=== PATIENT | male | born 1940 | race Caucasian/White ===

== ENCOUNTER 2017-01-05 10:00 | Inpatient (IN) | payer OTHER ==
[~2017-01-05] VITALS: Ht 182.9 cm; Wt 115.7 kg
[2017-01-05 10:00] VITALS: BP_SYST 136
[2017-01-05] MEDS ORDERED: PIPERACILLIN/TAZO 3.38 GM in NS 50 ML IV ONE (10:45)
[2017-01-05] MEDS ORDERED: MORPHINE 4 MG/ML INJ. SYRINGE IVP ONE (10:45)
[2017-01-05] MEDS ORDERED: DIPHENHYDRAMINE INJ 50 MG/ML VIAL IVP ONE (10:45)
[2017-01-05] MEDS ORDERED: PIPERACILLIN/TAZOBACTAM 3.375 GM/VIAL (ZOSYN) IV ONE (11:03)
[2017-01-05 11:10] LABS: BASOPHILS % (AUTO) 0.5 % (0.0-2.0); EOSINOPHILS # (AUTO) 0.2 K/uL (0.0-0.4); EOSINOPHILS % (AUTO) 3.5 % (0.0-4.0); HEMATOCRIT 44.6 % (36-54); HEMOGLOBIN 14.6 g/dL (14.0-18.0); LYMPHOCYTES # (AUTO) 1.8 K/uL (1.0-5.5); LYMPHOCYTES % (AUTO) 31.3 % (20.5-51.5); MEAN CORPUSCULAR HEMOGLOBIN 29 pg (27-31); MEAN CORPUSCULAR HGB CONC 33 % (32-36); MEAN CORPUSCULAR VOLUME 88 fL (79.0-98.0); MONOCYTES # (AUTO) 0.4 K/uL (0.0-1.0); MONOCYTES % (AUTO) 7.6 % (1.7-9.3); NEUTROPHILS # (AUTO) 3.5 K/uL (1.8-7.7); NEUTROPHILS % (AUTO) 57.1 % (40.0-70.0); PLATELET COUNT (AUTO) 247 K/uL (130-430); RED BLOOD CELL COUNT(AUTO) 5.06 MIL/uL (4.2-6.2); RED CELL DISTRIBUTION WIDTH 13.3 % (9.0-15.0); WHITE BLOOD COUNT (AUTO) 5.9 K/uL (4.8-10.8)
[2017-01-05 11:23] LABS: ANION GAP 6 (5-15); CALCIUM 9.1 mg/dL (8.4-11.0); CHLORIDE 103 mmol/L (98-107); CREATININE 1.14 mg/dL (0.55-1.30); GLUCOSE 126 mg/dL (70-99); POTASSIUM 3.7 mmol/L (3.5-5.1); SODIUM SERUM 134 mmol/L (136-145); UREA NITROGEN, BLOOD 18 mg/dL (8-21)
[2017-01-05 11:51] LABS: PROTHROMBIN TIME 34.1 SECS (9.5-12.5)
[2017-01-05 11:52] LABS: ALANINE AMINOTRANSFERASE 23 U/L (12-78); ALBUMIN 3.5 g/dL (3.4-4.8); ASPARTATE AMINOTRANSFERASE 30 U/L (10-37); LIPASE 144 U/L (73-393); TOTAL BILIRUBIN 1.1 mg/dL (0.0-1.0); TOTAL PROTEIN, SERUM 7.8 g/dL (6.4-8.3)
[2017-01-05 12:28] LABS: BILIRUBIN,URINE NEGATIVE (NEGATIVE); BLOOD, URINE NEGATIVE (NEGATIVE); CLARITY/URINE CLEAR (CLEAR); COLOR,URINE YELLOW (YELLOW); GLUCOSE,URINE NEGATIVE (NEGATIVE); KETONES,URINE NEGATIVE (NEGATIVE); LEUKOCYTE ESTERASE ,URINE NEGATIVE (NEGATIVE); NITRITE, URINE NEGATIVE (NEGATIVE); PH,URINE 5.5 (5.0-8.0); PROTEIN URINE NEGATIVE (NEGATIVE)
[2017-01-05] MEDS ORDERED: NIAC1000 PO (13:01)
[2017-01-05] MEDS ORDERED: WARF4TAB68 PO ×2 (13:01→16:59)
[2017-01-05] MEDS ORDERED: SERT25TA PO (13:01)
[2017-01-05] MEDS ORDERED: EZET10TA PO ×2 (13:01→16:59)
[2017-01-05] MEDS ORDERED: PHYTONADIONE 10 MG/ML AMP SUBCUT ONE ×2 (13:30→19:00)
[2017-01-05 14:05] VITALS: BP_SYST 129
[2017-01-05 16:30] VITALS: BP_SYST 110
[2017-01-05] MEDS ORDERED: PANTOPRAZOLE SODIUM 40 MG/VIAL (PROTONIX) IVP ONE (16:30)
[2017-01-05] MEDS: D5/0.45 NS 1,000 ML IV SCH (16:47)
[2017-01-05] MEDS ORDERED: LOP600 PO (16:59)
[2017-01-05] MEDS ORDERED: NIAC1CAP PO (16:59)
[2017-01-05] MEDS ORDERED: SERT50TA PO (16:59)
[2017-01-05] MEDS ORDERED: PHYTONADIONE 5 MG TABLET PO ONE (17:15)
[2017-01-05] MEDS: PIPERACILLIN/TAZO 3.375/DEX-IS 50 ML IV SCH ×2 (18:18→23:59)
[2017-01-05 20:00] VITALS: BP_SYST 117
[2017-01-05] MEDS: metroNIDAZOLE 500 mg/NS 100 ML IV SCH (21:53)
[2017-01-06] VITALS (9 sets, daily range): BP systolic 113–143
[2017-01-06] MEDS ORDERED: PHYTONADIONE 5 MG TABLET PO ONE
[2017-01-06] MEDS ORDERED: PHYTONADIONE 10 MG/ML AMP SUBCUT ONE
[2017-01-06] MEDS: metroNIDAZOLE 500 mg/NS 100 ML IV SCH ×3 (05:08→23:31)
[2017-01-06] MEDS: D5/0.45 NS 1,000 ML IV SCH ×2 (05:19→23:30)
[2017-01-06] MEDS: PIPERACILLIN/TAZO 3.375/DEX-IS 50 ML IV SCH ×2 (05:47→10:41)
[2017-01-06 07:12] LABS: BASOPHILS % (AUTO) 0.6 % (0.0-2.0); EOSINOPHILS # (AUTO) 0.3 K/uL (0.0-0.4); EOSINOPHILS % (AUTO) 5.4 % (0.0-4.0); HEMATOCRIT 41.4 % (36-54); HEMOGLOBIN 13.6 g/dL (14.0-18.0); LYMPHOCYTES # (AUTO) 1.7 K/uL (1.0-5.5); LYMPHOCYTES % (AUTO) 28.4 % (20.5-51.5); MEAN CORPUSCULAR HEMOGLOBIN 29 pg (27-31); MEAN CORPUSCULAR HGB CONC 33 % (32-36); MEAN CORPUSCULAR VOLUME 88 fL (79.0-98.0); MONOCYTES # (AUTO) 0.4 K/uL (0.0-1.0); MONOCYTES % (AUTO) 7.4 % (1.7-9.3); NEUTROPHILS # (AUTO) 3.6 K/uL (1.8-7.7); NEUTROPHILS % (AUTO) 58.2 % (40.0-70.0); PLATELET COUNT (AUTO) 203 K/uL (130-430); RED BLOOD CELL COUNT(AUTO) 4.69 MIL/uL (4.2-6.2); RED CELL DISTRIBUTION WIDTH 13.4 % (9.0-15.0)
[2017-01-06 07:28] LABS: ALANINE AMINOTRANSFERASE 23 U/L (12-78); ALBUMIN 3.2 g/dL (3.4-4.8); ANION GAP 9 (5-15); ASPARTATE AMINOTRANSFERASE 30 U/L (10-37); CALCIUM 8.6 mg/dL (8.4-11.0); CHLORIDE 109 mmol/L (98-107); CREATININE 0.98 mg/dL (0.55-1.30); GLUCOSE 98 mg/dL (70-99); POTASSIUM 3.1 mmol/L (3.5-5.1); SODIUM SERUM 142 mmol/L (136-145); TOTAL BILIRUBIN 1.3 mg/dL (0.0-1.0); TOTAL PROTEIN, SERUM 7.2 g/dL (6.4-8.3); UREA NITROGEN, BLOOD 12 mg/dL (8-21)
[2017-01-06 07:37] LABS: INR 2.3 (0.80-1.20); PROTHROMBIN TIME 25.9 SECS (9.5-12.5)
[2017-01-06] MEDS: PANTOPRAZOLE SODIUM 40 MG/VIAL (PROTONIX) IVP SCH (09:26)
[2017-01-06] MEDS ORDERED: POTASSIUM CHLORIDE 40 MEQ in NS 250 ML IV ONE (13:00)
[2017-01-06 16:04] LABS: INR 1.5 (0.80-1.20); PROTHROMBIN TIME 16.4 SECS (9.5-12.5)
[2017-01-06] MEDS ORDERED: SEVOFLURANE 15 MIN GAS INH ONE (18:48)
[2017-01-06] MEDS ORDERED: KETOROLAC TROMETHAMINE 30 MG VIAL IVP ONE (18:48)
[2017-01-06] MEDS ORDERED: GLYCOPYRROLATE 0.2 MG/ML VIAL IJ ONE (18:48)
[2017-01-06] MEDS ORDERED: LR 1,000 ML IV.SOLN IV ONE (18:48)
[2017-01-06] MEDS ORDERED: MIDAZOLAM HCL 5 MG/5 ML VIAL IVP ONE (18:48)
[2017-01-06] MEDS ORDERED: fentaNYL CITRATE 250 MCG/5 ML AMP IV ONE (18:48)
[2017-01-06] MEDS ORDERED: PROPOFOL 200MG/ 20ML VIAL (DIPRIVAN) IV ONE (18:48)
[2017-01-06] MEDS ORDERED: NEOSTIGMINE METHYLSULFATE 1 MG/ML, 10 ML VIAL IVP ONE (18:48)
[2017-01-06] MEDS ORDERED: ONDANSETRON HCL 4 MG/2 ML VIAL IVP ONE (18:48)
[2017-01-06] MEDS ORDERED: LR 1,000 ML IV SCH (19:21)
[2017-01-06] MEDS ORDERED: ONDANSETRON HCL 4 MG/2 ML VIAL IVP PRN (19:30)
[2017-01-06] MEDS ORDERED: HYDROmorphone 2 MG/ML VIAL IVP PRN ×2 (19:30)
[2017-01-06] MEDS ORDERED: HYDROmorphone 1 MG INJ. 1 MG/ML AMPUL IVP PRN (19:30)
[2017-01-06] MEDS ORDERED: HYDROmorphone 1 MG INJ. 1 MG/ML AMPUL ONE ×2 (21:33→21:47)
[2017-01-07 00:25] VITALS: BP_SYST 117
[2017-01-07] MEDS: PIPERACILLIN/TAZO 3.375/DEX-IS 50 ML IV SCH ×4 (00:49→18:12)
[2017-01-07 04:29] VITALS: BP_SYST 119
[2017-01-07] MEDS: D5/0.45 NS 1,000 ML IV SCH ×3 (04:58→23:34)
[2017-01-07] MEDS: metroNIDAZOLE 500 mg/NS 100 ML IV SCH ×3 (05:45→23:33)
[2017-01-07] MEDS ORDERED: *LOVENOX 1MG/KG Q12H/PHARMACY XX ONE (06:45)
[2017-01-07 07:17] LABS: EOSINOPHILS % (AUTO) 0.1 % (0.0-4.0); HEMATOCRIT 42.4 % (36-54); HEMOGLOBIN 13.9 g/dL (14.0-18.0); LYMPHOCYTES # (AUTO) 0.9 K/uL (1.0-5.5); LYMPHOCYTES % (AUTO) 8.3 % (20.5-51.5); MEAN CORPUSCULAR HEMOGLOBIN 29 pg (27-31); MEAN CORPUSCULAR HGB CONC 33 % (32-36); MEAN CORPUSCULAR VOLUME 88 fL (79.0-98.0); MONOCYTES # (AUTO) 0.2 K/uL (0.0-1.0); MONOCYTES % (AUTO) 2.3 % (1.7-9.3); NEUTROPHILS # (AUTO) 9.7 K/uL (1.8-7.7); NEUTROPHILS % (AUTO) 89.3 % (40.0-70.0); PLATELET COUNT (AUTO) 246 K/uL (130-430); RED CELL DISTRIBUTION WIDTH 13.8 % (9.0-15.0); WHITE BLOOD COUNT (AUTO) 10.8 K/uL (4.8-10.8)
[2017-01-07 07:32] LABS: ALANINE AMINOTRANSFERASE 27 U/L (12-78); ALBUMIN 3.2 g/dL (3.4-4.8); ANION GAP 12 (5-15); ASPARTATE AMINOTRANSFERASE 34 U/L (10-37); CALCIUM 8.6 mg/dL (8.4-11.0); CHLORIDE 109 mmol/L (98-107); GLUCOSE 141 mg/dL (70-99); POTASSIUM 3.8 mmol/L (3.5-5.1); SODIUM SERUM 144 mmol/L (136-145); TOTAL BILIRUBIN 1.1 mg/dL (0.0-1.0); TOTAL PROTEIN, SERUM 7.4 g/dL (6.4-8.3); UREA NITROGEN, BLOOD 10 mg/dL (8-21)
[2017-01-07] MEDS: PANTOPRAZOLE SODIUM 40 MG/VIAL (PROTONIX) IVP SCH (09:21)
[2017-01-07] MEDS: ENOXAPARIN SODIUM 120 MG/0.8 ML SYRINGE SUBCUT SCH ×2 (09:21→20:37)
[2017-01-07 12:43] VITALS: BP_SYST 111
[2017-01-07] MEDS: MORPHINE 2 MG/ML INJ. SYRINGE IVP PRN ×2 (13:28→19:50)
[2017-01-07 16:10] VITALS: BP_SYST 104
[2017-01-07 20:10] VITALS: BP_SYST 107
[2017-01-07] MEDS ORDERED: HYDROmorphone 2 MG/ML VIAL IVP PRN (23:15)
[2017-01-08 00:15] VITALS: BP_SYST 129
[2017-01-08] MEDS: PIPERACILLIN/TAZO 3.375/DEX-IS 50 ML IV SCH ×5 (00:56→23:30)
[2017-01-08 03:28] VITALS: BP_SYST 105
[2017-01-08] MEDS: metroNIDAZOLE 500 mg/NS 100 ML IV SCH ×3 (06:39→21:01)
[2017-01-08 07:24] LABS: BASOPHILS % (AUTO) 0.5 % (0.0-2.0); EOSINOPHILS # (AUTO) 0.3 K/uL (0.0-0.4); EOSINOPHILS % (AUTO) 3.6 % (0.0-4.0); HEMATOCRIT 35.5 % (36-54); HEMOGLOBIN 11.9 g/dL (14.0-18.0); LYMPHOCYTES # (AUTO) 1.5 K/uL (1.0-5.5); MEAN CORPUSCULAR HEMOGLOBIN 30 pg (27-31); MEAN CORPUSCULAR HGB CONC 34 % (32-36); MEAN CORPUSCULAR VOLUME 90 fL (79.0-98.0); MONOCYTES # (AUTO) 0.5 K/uL (0.0-1.0); NEUTROPHILS # (AUTO) 5.9 K/uL (1.8-7.7); NEUTROPHILS % (AUTO) 71.9 % (40.0-70.0); PLATELET COUNT (AUTO) 203 K/uL (130-430); RED BLOOD CELL COUNT(AUTO) 3.95 MIL/uL (4.2-6.2); RED CELL DISTRIBUTION WIDTH 13.6 % (9.0-15.0); WHITE BLOOD COUNT (AUTO) 8.2 K/uL (4.8-10.8)
[2017-01-08 07:36] LABS: ALANINE AMINOTRANSFERASE 24 U/L (12-78); ALBUMIN 2.9 g/dL (3.4-4.8); ANION GAP 8 (5-15); ASPARTATE AMINOTRANSFERASE 30 U/L (10-37); CALCIUM 8.1 mg/dL (8.4-11.0); CHLORIDE 107 mmol/L (98-107); CREATININE 1.06 mg/dL (0.55-1.30); GLUCOSE 104 mg/dL (70-99); SODIUM SERUM 142 mmol/L (136-145); TOTAL BILIRUBIN 1.1 mg/dL (0.0-1.0); TOTAL PROTEIN, SERUM 6.7 g/dL (6.4-8.3); UREA NITROGEN, BLOOD 7 mg/dL (8-21)
[2017-01-08 08:00] VITALS: BP_SYST 93
[2017-01-08] MEDS: ENOXAPARIN SODIUM 120 MG/0.8 ML SYRINGE SUBCUT SCH (09:00)
[2017-01-08] MEDS: PANTOPRAZOLE SODIUM 40 MG/VIAL (PROTONIX) IVP SCH ×2 (09:01→21:01)
[2017-01-08 12:00] VITALS: BP_SYST 112
[2017-01-08 15:10] LABS: HEMATOCRIT 35.8 % (36-54); HEMOGLOBIN 11.9 g/dL (14.0-18.0)
[2017-01-08 16:42] VITALS: BP_SYST 95
[2017-01-08 19:40] VITALS: BP_SYST 139
[2017-01-08 20:24] LABS: HEMATOCRIT 35.3 % (36-54); HEMOGLOBIN 11.9 g/dL (14.0-18.0)
[2017-01-09 00:48] VITALS: BP_SYST 121
[2017-01-09 03:23] LABS: HEMATOCRIT 33.8 % (36-54); HEMOGLOBIN 11.5 g/dL (14.0-18.0)
[2017-01-09 03:51] VITALS: BP_SYST 102
[2017-01-09] MEDS: PIPERACILLIN/TAZO 3.375/DEX-IS 50 ML IV SCH ×3 (05:28→17:40)
[2017-01-09] MEDS: metroNIDAZOLE 500 mg/NS 100 ML IV SCH ×2 (05:32→14:12)
[2017-01-09] MEDS: D5/0.45 NS 1,000 ML IV SCH (05:32)
[2017-01-09 08:24] VITALS: BP_SYST 120
[2017-01-09] MEDS: PANTOPRAZOLE SODIUM 40 MG/VIAL (PROTONIX) IVP SCH ×2 (08:26→08:30)
[2017-01-09 09:31] LABS: HEMOGLOBIN 11.5 g/dL (14.0-18.0)
[2017-01-09] MEDS ORDERED: MIDAZOLAM HCL 5 MG/5 ML VIAL ONE (09:49)
[2017-01-09] MEDS ORDERED: SIMETHICONE 40 MG/0.6 ML ML ONE (09:50)
[2017-01-09] MEDS: MEPERIDINE HCL/PF 100 MG/ML AMP ONE ×2 (11:10→11:12)
[2017-01-09] MEDS: MIDAZOLAM HCL 5 MG/5 ML VIAL ONE ×3 (11:10→11:20)
[2017-01-09 12:31] VITALS: BP_SYST 108
[2017-01-09 14:27] LABS: HEMATOCRIT 36.2 % (36-54); HEMOGLOBIN 11.9 g/dL (14.0-18.0)
[2017-01-09 16:51] VITALS: BP_SYST 118
[2017-01-09 17:01] VITALS: BP_SYST 114
== END 2017-01-09 19:35 | disposition home or self-care (01) | DRG 353 ==
LOC: SED 10:00 → STU 13:19 → SMU 01-06 12:14
PROVIDERS: ADMIT Internal Medicine Hospice and Palliative Medicine; ATTEND Internal Medicine Hospice and Palliative Medicine
PROC: 30233L1 Transfusion of Nonautologous Fresh Plasma into Peripheral Vein, Percutaneous Approach (ICD-10-PCS; 2017-01-06)
PROC: 30233K1 Transfusion of Nonautologous Frozen Plasma into Peripheral Vein, Percutaneous Approach (ICD-10-PCS; 2017-01-06)
PROC: 0WUF0JZ Supplement Abdominal Wall with Synthetic Substitute, Open Approach (ICD-10-PCS; principal; 2017-01-06 16:45)
PROC: 0DB68ZX Excision of Stomach, Via Natural or Artificial Opening Endoscopic, Diagnostic (ICD-10-PCS; 2017-01-09)
DX: K43.6 Other and unspecified ventral hernia with obstruction, without gangrene (principal); K29.71 Gastritis, unspecified, with bleeding; D62 Acute posthemorrhagic anemia; K44.0 Diaphragmatic hernia with obstruction, without gangrene; E78.5 Hyperlipidemia, unspecified; H91.90 Unspecified hearing loss, unspecified ear; I10 Essential (primary) hypertension; E87.6 Hypokalemia; Z90.49 Acquired absence of other specified parts of digestive tract; Z79.01 Long term (current) use of anticoagulants; Z79.899 Other long term (current) drug therapy; Z86.718 Personal history of other venous thrombosis and embolism; Z85.038 Personal history of other malignant neoplasm of large intestine
CPT/HCPCS: 36415; 43239; 71010; 80053; 81003; 83605; 83690-TC; 85018-TC; 85025; 85610-TC; 85730-TC; 86900; 86901; 87040-TC; 87081; 88302; 93005; 93970; 94010; 94760; 96365; 99285; C1781; C9113; J1170; J1200; J1650; J1885; J2175; J2250; J2270; J2405; J2543; J2704; J2710; J3010; J3430; J3480; J3490; J7050; J7120; P9059

== ENCOUNTER 2017-02-20 16:42 | Emergency (ER) | payer OTHER ==
[~2017-02-20] VITALS: Ht 182.9 cm; Wt 104.3 kg
[~2017-02-20 16:42] MED LIST: EZET10TA PO; LOP600 PO; NIAC1CAP PO; SERT50TA PO; WARF4TAB68 PO
[2017-02-20 16:50] VITALS: BP_SYST 151
[2017-02-20] MEDS ORDERED: fentaNYL CITRATE/PF 100 MCG/2 ML AMP IM ONE (17:15)
[2017-02-20] MEDS ORDERED: PROMETHAZINE HCL 25 MG/ML AMP IM ONE (17:15)
[2017-02-20 18:16] VITALS: BP_SYST 129
== END 2017-02-20 18:16 | disposition home or self-care (01) ==
LOC: SED 16:42
DX: M54.31 Sciatica, right side (principal); Z85.9 Personal history of malignant neoplasm, unspecified
CPT/HCPCS: 96372; 99284; J2550; J3010